=== PATIENT | female | born 1985 ===

== ENCOUNTER → 2021-09-26 09:04 | Outpatient (CLI) | payer OTHER, MEDICAID, SELFPAY ==
--- NOTE | 2021-09-26 | DI.US.S_ITS ---
PROCEDURE: US OB >= 14 WEEKS FETUS INDICATIONS: ANATOMY SCAN OUTSIDE/PRIOR DATING DATA: Last menstrual period (LMP): Unknown. LMP-based estimated date of delivery (KRISTIE): Unknown. First dating scan (date and location): No 1st trimester ultrasound. Estimated date of delivery (KRISTIE) from first dating scan: N/A. Therefore, no established due date TECHNIQUE: Real-time scanning was performed of the fetus, with image documentation and biometric measurements. Endovaginal scanning: Not performed COMPARISON: None. FINDINGS: General: A single living intrauterine gestation is present. Presentation: Transverse with head to maternal right. Placenta: Placental position is posterior , without previa. Amniotic fluid index: 12.5 cm, normal range is 5-24 cm. Single deepest vertical pocket is 4.6 cm. heart rate: 152 beats per minute. Maternal cervical canal: 5.5 cm long. Normal lower limit is 2.5 cm. biometrics: Biparietal diameter: 4.7 cm, 20 weeks 1 day Head circumference: 16.6 cm, 19 weeks 2 days Abdominal circumference: 16.2 cm, 21 weeks 2 days Femur length: 3.2 cm, 20 weeks 0 days Clinically estimated gestational age: Unknown Composite gestational age from present scan: 20 weeks 1 day Estimated due date from today's ultrasound is 02/12/2022 Estimated weight and percentile: Not calculable Anatomic survey: Neuro: Ventricles are non-dilated at less than 10 mm. Cisterna magna is normal at 3-11 mm. Cerebellum is normal in size and morphology. Nuchal skin fold: Normal at less than 6 mm between 14-21 weeks gestational age. Face: Nose and lips, facial profile are normal. Spine: No evidence for spina bifida. Heart: Four-chamber view and bilateral at flow tracks are suboptimally visualized. Diaphragm: Diaphragm is intact. Stomach: Left-sided stomach is present. Kidneys: No hydronephrosis. Normal is less than 5 mm in 2nd trimester, less than 7 mm in 3rd trimester. Cord: 3-vessel cord has orthotopic insertion. Bladder: Normal in size. Extremities: All 4 extremities identified. IMPRESSION: 1. Living 2nd trimester intrauterine with no sonographic evidence of complications. 2. No prior imaging, LMP is unknown. Therefore, this ultrasound is used to establish a due date of 02/12/2022. Fetus measures 20 weeks 1 day by today's ultrasound. 3. Suboptimal imaging of heart views. All other structures are unremarkable. Comment: Consider returning for a limited ultrasound for further evaluation of the heart. We strive to produce accurate, complete, and clear reports of imaging services. To assist us in improving patient care, this report was composed using standard report templates and voice recognition software. Therefore, it may contain abnormal punctuation, insertions and/or omissions. Occasional wrong-word or sound-alike substitutions may occur. Though we review the report and make efforts to correct it, we do recommend that the report be read carefully in proper context to recognize any text inaccuracies. Dictated by: Marcos Jules M.D. on 09/26/2021 at 14:29 Approved by: Marcos Jules M.D. on 09/26/2021 at 14:39
== END ==
PROVIDERS: Referring Provider Midwife; Visit Provider Midwife
DX: Z36.89 Encounter for other specified antenatal screening (principal); Z3A.20 20 weeks gestation of pregnancy
CPT/HCPCS: 76811